=== PATIENT | male | born 1940 | race Caucasian/White ===

== ENCOUNTER 2018-12-12 08:19 | Day surgery (SDC) | payer OTHER, MEDICARE ==
[~2018-12-12] VITALS: Ht 175.3 cm; Wt 73.6 kg
[~2018-12-12 08:19] MED LIST: ASCO500 PO; Aspir-Trin325 MG PO; FINA5 PO; FISH1000 PO; FOLI1 PO; GLUCOSAMINE PO; Hair, Skin & N1 EACH PO; NIAC500 PO; RXHYD5325 PO; TOCO400 PO; UBID10 PO; VITAMIN B122500 MCG PO; Vitamin D400 UNI2 PO; [UNRECOGNIZED DRUG - OTHER] PO
== END 2018-12-12 10:30 | disposition home or self-care (01) ==
LOC: ORSCSDS 08:19
PROVIDERS: Ophthalmology
PROC: 08RK3JZ Replacement of Left Lens with Synthetic Substitute, Percutaneous Approach (ICD-10-PCS; principal; 2018-12-12 09:30)
DX: H25.12 Age-related nuclear cataract, left eye (principal); I10 Essential (primary) hypertension; Z79.82 Long term (current) use of aspirin; Z79.899 Other long term (current) drug therapy
CPT/HCPCS: J2001; J2250; J3010; J3301; V2632